=== PATIENT | female | born 1955 | race Caucasian/White ===

== ENCOUNTER 2017-01-20 06:34 | Day surgery (SDC) | payer BC ==
[~2017-01-20 06:34] MED LIST: Lactated Ringers 1,000 ML IV SCH; Sodium Chloride 0.9% 10 ML Syringe FLUSH PRN; Sodium Chloride 0.9% 2.5 ML Syringe FLUSH PRN; ceFAZolin 1 GM in Premix Bag 1 BAG IV ONE
--- NOTE | 2017-01-20 07:11 | PCM.PREANE ---
Preanesthetic Assessment - Anesthesia/Transfusion/Family Hx Anesthesia History: Prior Anesthesia Without Reaction Family History of Anesthesia Reaction: No Transfusion History: No Prior Transfusion(s) - Review of Systems General: No Symptoms Pulmonary: No Symptoms Cardiovascular: No Symptoms Gastrointestinal: No symptoms Neurological: No Symptoms Other: Reports: None - Physical Assessment NPO Status Date: 01/19/17 (except sip with med this am) O2 Sat by Pulse Oximetry: 98 Respiratory Rate: 16 Vital Signs: Last Vital Signs Temp 36.1 C 01/20/17 06:54 Pulse 64 01/20/17 06:54 Resp 16 01/20/17 06:54 BP 140/72 01/20/17 06:54 Pulse Ox 98 01/20/17 06:54 Height: 1.57 m Weight: 69.4 kg ASA Class: 3 Mental Status: Alert & Oriented x3 Airway Class: Mallampati = 2 Dentition: Reports: Broken Tooth/Teeth, Caries ROM/Head Extension: Full Lungs: Clear to auscultation, Normal respiratory effort Cardiovascular: Regular Rate, Regular Rhythm - Allergies Allergies/Adverse Reactions: Allergies Allergy/AdvReac Type Severity Reaction Status Date / Time adhesive tape Allergy Rash Verified 01/18/17 10:46 codeine Allergy Nausea and Verified 01/18/17 10:46 Vomiting latex Allergy Rash Verified 01/18/17 10:46 Sulfa (Sulfonamide Allergy Cannot Verified 01/18/17 10:46 Antibiotics) Remember - Acknowledgements Anesthesia Type Planned: General Anesthesia Pt an Appropriate Candidate for the Planned Anesthesia: Yes Alternatives and Risks of Anesthesia Discussed w Pt/Guardian: Yes Pt/Guardian Understands and Agrees with Anesthesia Plan: Yes Additional Comments: pmh: cad with stend 11 yr ago, on asa until 7 day ago, MR, lung ca with brain mets, HTN, thyroid replacement.Will use LMA for scavenging of O2 PreAnesthesia Questionnaire HEENT History: Reports: Allergic Rhinitis, Other (See Below) Other HEENT History: wears glasses Cardiovascular History: Reports: High Cholesterol, Hypertension, [place] Respiratory History: Reports: Other (See Below) Other Respiratory History: small cell lung cancer Musculoskeletal History: Reports: Arthritis Endocrine/Metabolic History: Reports: Hypothyroidism Oncologic (Cancer) History: Reports: Lung - Past Surgical History Head Surgeries/Procedures: Reports: None HEENT Surgical History: Reports: Tonsillectomy Cardiovascular Surgical History: Reports: Coronary Artery Stent Endocrine Surgical History: Reports: Thyroidectomy - SUBSTANCE USE Smoking Status *Q: Former Smoker Tobacco Use Within Last Twelve Months: Cigarettes Recreational Drug Use History: No - HOME MEDS Home Medications: Home Meds Aspirin [[place] Aspirin] 81 mg PO DAILY 01/18/17 [History] Furosemide 20 mg PO ASDIRECTED PRN 01/18/17 [History] Levothyroxine Sodium [Synthroid] 75 mcg PO DAILY 01/18/17 [History] Lisinopril 10 mg PO DAILY 01/18/17 [History] Ondansetron HCl [Ondansetron] 8 mg PO ASDIRECTED PRN 01/18/17 [History] Prochlorperazine Maleate 10 mg PO ASDIRECTED 01/18/17 [History] Simvastatin [Zocor] 20 mg PO DAILY 01/18/17 [History] - CURRENT (IN HOUSE) MEDS Current Meds: Current Medications Lactated Ringer's (Ringers, Lactated) 1,000 mls @ 125 mls/hr IV ASDIRECTED FABBY Last Admin: 01/20/17 06:58 Dose: 125 mls/hr Sodium Chloride (Saline Flush) 10 ml FLUSH ASDIRECTED PRN PRN Reason: Keep Vein Open Sodium Chloride (Saline Flush) 2.5 ml FLUSH ASDIRECTED PRN PRN Reason: Keep Vein Open Discontinued Medications Cefazolin Sodium/Dextrose 1 gm (/ Premix) 50 mls @ 100 mls/hr IV ONETIME ONE Stop: 01/19/17 12:38
[2017-01-20] MEDS ORDERED: Bupivacaine 0.5% 10 ML SDV ONE (07:20)
[2017-01-20] MEDS ORDERED: Heparin Sodium 100 Units/ML 3 ML Syringe ONE (07:21)
[2017-01-20] MEDS ORDERED: Lidocaine 1% 20 ML MDV ONE (07:21)
[2017-01-20] MEDS ORDERED: Iopamidol 408 MG/ML 50 ML SDV ONE (07:21)
[2017-01-20] MEDS ORDERED: Lidocaine 2% 5 ML SDV ONE (07:26)
[2017-01-20] MEDS ORDERED: Propofol 200 MG/20 ML SDV ONE (07:26)
[2017-01-20] MEDS ORDERED: fentaNYL 100 MCG/2 ML SDV ONE (07:26)
[2017-01-20] MEDS ORDERED: Ondansetron 4 MG/2 ML SDV ONE (07:27)
[2017-01-20] MEDS ORDERED: Midazolam 1 MG/ML 2 ML SDV ONE (07:27)
[2017-01-20] MEDS ORDERED: ceFAZolin 1 GM Vial ONE (07:32)
[2017-01-20] MEDS ORDERED: Sodium Chloride 0.9% 20 ML ONE (07:33)
[2017-01-20] MEDS ORDERED: ePHEDrine 50 MG/ML SDV ONE (08:10)
[2017-01-20] MEDS ORDERED: Phenylephrine/Normal Saline 100 MCG/ML 10 ML Syringe ONE (08:10)
[2017-01-20] MEDS ORDERED: Octyl 2-Cyanoacrylate 1 Tube ONE (08:46)
--- NOTE | 2017-01-20 09:16 | PCM.OPNOTE ---
- General Post-Op/Procedure Note Date of Surgery/Procedure: 01/20/17 Operative Procedure(s): Right internal jugular port a cath Findings: RIJ port Pre Op Diagnosis: lung cancer Post-Op Diagnosis: same Anesthesia Technique: General LMA Primary Surgeon: Shelia Cox Condition: Good
--- NOTE | 2017-01-20 09:56 | PCM48HPAN ---
Post Anesthesia Note - EVALUATION WITHIN 48HRS OF ANESTHETIC Vital Signs in Normal Range: Yes Patient Participated in Evaluation: Yes Respiratory Function Stable: Yes Airway Patent: Yes Cardiovascular Function Stable: Yes Hydration Status Stable: Yes Pain Control Satisfactory: Yes Nausea and Vomiting Control Satisfactory: Yes Mental Status Recovered: Yes
--- NOTE | 2017-01-20 09:56 | PCM.POSTAN ---
POST ANESTHESIA ASSESSMENT - MENTAL STATUS Mental Status: oriented - RESPIRATORY Respiratory Status: respiratory rate WNL, airway patent, O2 saturation stable - CARDIOVASCULAR CV Status: pulse rate WNL, blood pressure stable - GASTROINTESTINAL GI Status: no symptoms - POST OP HYDRATION Hydration Status: adequate & stable
[2017-01-20 10:30] VITALS: BP 122/63
--- NOTE | 2017-01-20 11:22 | CR ---
EXAMINATION: Portable chest radiograph. HISTORY: Port-A-Cath placement. FINDINGS: The trachea is midline. The cardiomediastinal silhouette is within normal limits. No pulmonary infil trates, effusions or pneumothorax. There is a right-sided portacatheter noted with tip in good posit ion. Osseous structures appear unremarkable. IMPRESSION: Right-sided portacatheter with tip in good position without evidence of a pneumothorax.
--- NOTE | 2017-01-20 13:25 | OR ---
SURGEON: HEIDY SWEENEY MD DATE OF PROCEDURE: 01/20/2017 PREOPERATIVE DIAGNOSIS: Left upper lobe lung cancer. POSTOPERATIVE DIAGNOSIS: Left upper lobe lung cancer. PROCEDURE PERFORMED: Right internal jugular Port-A-Cath placement. ANESTHESIA: General LMA. ESTIMATED BLOOD LOSS: 5 mL. FINDINGS: Right internal jugular Port-A-Cath placement. COMPLICATIONS: None. PATHOLOGY: None. FLUIDS: See anesthesia report. INDICATIONS: The patient is a 61-year-old female with a long history of smoking, who presents with a newly diagnosed left upper lobe lung cancer. She is here for Port-A-Cath placement for chemotherapy treatment. The patient and I discussed the procedure as well as expected perioperative course. We discussed the risks, including bleeding, infection, or damage to surrounding structures, including hemothorax and pneumothorax. The patient verbalized understanding and wishes to proceed. PROCEDURE IN DETAIL: The patient was brought to the OR and placed on the OR table in supine position. A time-out was completed verifying the patient's name, age, date of , allergies, and procedure to be performed. General LMA anesthesia was induced. A shoulder roll was placed under the patient's shoulders and both arms tucked at her side. The head was placed into slight extension and turned to the right. Prior to prepping the neck, I brought an ultrasound into the field and verified the vascular anatomy of the right side of the neck. I was able to clearly locate the right internal jugular vein and the right carotid on ultrasound. The decision was made to attempt a right internal jugular Port-A-Cath placement, given these findings. The patient's neck and chest were prepped and draped in the usual standard fashion. I first anesthetized the area overlying the right internal jugular vein with 1% lidocaine plain. I then anesthetized the right upper chest and catheter tract with the remainder of 1% lidocaine and 0.5% Marcaine plain. Using a locating needle and the ultrasound, I placed my needle into the right internal jugular vein under direct visualization. Immediately, had a good return of venous appearing blood. A guidewire was placed down the finding needle and into the chest. X-ray was brought in to verify the placement of the guidewire within the superior and inferior vena cava. I then turned my attention to the right upper chest. I made a 4 cm incision, 2 fingerbreadths below the lateral aspect of the clavicle. I then dissected down to the chest wall using electrocautery and created a subcutaneous pocket. A tunneling device was then placed through this incision and guided up to my guidewire site on the right side of the neck. The tubing was then pulled to an appropriate length. A vascular dilator and sheath were then placed over the guidewire and the right internal jugular vein was dilated under fluoroscopic guidance. Once this was completed, I removed the dilator and guidewire. I then placed the catheter tubing down the sheath into the superior vena cava. The sheath was then broken and pulled away. X-ray was brought in to verify placement of the catheter tubing into the superior vena cava. Using fluoro, I then pulled the catheter back into the superior vena cava at the length of approximately 25 cm. An x-ray was taken and saved to the patient's chart. I then ensured good blood flow through the catheter tubing using an injector needle on the end of the tubing with injectable saline. The catheter tubing was then trimmed to size and placed on the port. The port was then secured in the subcutaneous pocket to the chest wall using 2-0 Prolene sutures. These were tied down and the port accessed with a Denson needle. There was good return of blood and the port was then locked with 4 mL of heparinized saline. The Port-A-Cath pocket site on the right chest was closed with interrupted 3-0 Vicryl sutures in the subcutaneous fat and a running 4-0 Monocryl suture in the subcutaneous space. The neck incision site was closed with interrupted 4-0 Monocryl. Dermabond was applied over the wounds and the port accessed as the patient will be going to chemotherapy later today. All counts were complete and correct at the end of the case. The patient tolerated the procedure well and was taken to PACU. A chest x-ray was obtained, which showed good placement of the port with no evidence of any hemothorax or pneumothorax. The patient tolerated the procedure well. PAMELA COBB /[id number] AMAURY
== END 2017-01-20 10:25 | disposition home or self-care (01) ==
LOC: MW.SDS 06:34
PROVIDERS: ATTEND Surgery
DX: C34.12 Malignant neoplasm of upper lobe, left bronchus or lung (principal); I10 Essential (primary) hypertension; E03.9 Hypothyroidism, unspecified; I25.10 Atherosclerotic heart disease of native coronary artery without angina pectoris; Z91.09 Other allergy status, other than to drugs and biological substances; Z79.82 Long term (current) use of aspirin; Z79.899 Other long term (current) drug therapy; Z88.8 Allergy status to other drugs, medicaments and biological substances; Z91.030 Bee allergy status; Z91.040 Latex allergy status; Z98.890 Other specified postprocedural states; E89.0 Postprocedural hypothyroidism; Z87.891 Personal history of nicotine dependence
CPT/HCPCS: 36561; 71010; 76000; A9270; J0690; J1642; J2250; J2405; J3010; J7120; 00532; J2704; Q9966

== ENCOUNTER 2017-02-13 12:06 | Emergency (ER) | payer BC ==
--- NOTE | 2017-02-13 12:27 | EDM.PDOC ---
ED HPI GENERAL MEDICAL PROBLEM - General Chief Complaint: General Stated Complaint: BLOOD PRESSURE PROBLEMS Time Seen by Provider: 02/13/17 12:14 - History of Present Illness INITIAL COMMENTS - FREE TEXT/NARRATIVE: HISTORY AND PHYSICAL: History of present illness: Patient 61-year-old female with history of pulmonary CVA who is currently undergoing treatment and also has history of hypertension but had meds discontinued due to low blood pressure she was on several medications for blood pressure at that time. She presents today after having been monitoring her blood pressure and noted it trend that is been as high as 190 systolic most recently she did see her oncologist in nurse recently that suggested if this continues to be persistently elevated that she needs to be evaluated she has absolutely no symptoms and no complaints. On arrival in ED she is 191/95 and asymptomatic Review of systems: As per history of present illness and below otherwise all systems reviewed and negative. Past medical history: As per history of present illness and as reviewed below otherwise noncontributory. Surgical history: As per history of present illness and as reviewed below otherwise noncontributory. Social history: No reported history of drug or alcohol abuse. Family history: As per history of present illness and as reviewed below otherwise noncontributory. Physical exam: HEENT: Atraumatic, normocephalic, pupils reactive, mild conjunctival pallor, mucous membranes moist, throat clear, neck supple, nontender, trachea midline. Lungs: Clear to auscultation,, chest nontender. Heart: S1S2, regular, negative for clicks, rubs, or JVD. Abdomen: Soft, nondistended, nontender. Negative for masses or hepatosplenomegaly. Negative for costovertebral tenderness. Pelvis: Stable nontender. Genitourinary: Deferred. Rectal: Deferred. Extremities: Atraumatic, negative for cords or calf pain. Neurovascular unremarkable. Neuro: Awake, alert, oriented. Cranial nerves II through XII unremarkable. Cerebellum unremarkable. Motor and sensory unremarkable throughout. Exam nonfocal. Diagnostics: CBC CMP troponin EKG chest x-ray Therapeutics: None Impression: #1 history of pulmonary cancer #2 hypertension Definitive disposition and diagnosis as appropriate pending reevaluation and review of above. - Related Data Allergies Allergy/AdvReac Type Severity Reaction Status Date / Time adhesive tape Allergy Rash Verified 02/13/17 12:15 codeine Allergy Nausea and Verified 02/13/17 12:15 Vomiting latex Allergy Rash Verified 02/13/17 12:15 Sulfa (Sulfonamide Allergy Cannot Verified 02/13/17 12:15 Antibiotics) Remember Home Meds: Home Meds Aspirin [[place] Aspirin] 81 mg PO DAILY 01/18/17 [History] Levothyroxine Sodium [Synthroid] 75 mcg PO DAILY 01/18/17 [History] Ondansetron HCl [Ondansetron] 8 mg PO ASDIRECTED PRN 01/18/17 [History] Prochlorperazine Maleate 10 mg PO ASDIRECTED 01/18/17 [History] Simvastatin [Zocor] 20 mg PO BEDTIME 01/18/17 [History] Omeprazole Magnesium [Prilosec Otc] 1 tab PO DAILY 02/13/17 [History] Past Medical History HEENT History: Reports: Allergic Rhinitis, Other (See Below) Other HEENT History: wears glasses Cardiovascular History: Reports: High Cholesterol, Hypertension, [place] Respiratory History: Reports: Other (See Below) Other Respiratory History: small cell lung cancer Musculoskeletal History: Reports: Arthritis Endocrine/Metabolic History: Reports: Hypothyroidism Oncologic (Cancer) History: Reports: Lung - Past Surgical History Head Surgeries/Procedures: Reports: None HEENT Surgical History: Reports: Tonsillectomy Cardiovascular Surgical History: Reports: Coronary Artery Stent Endocrine Surgical History: Reports: Thyroidectomy Social & Family History - Tobacco Use Smoking Status *Q: Former Smoker Years of Tobacco use: 40 Used Tobacco, but Quit: Yes Month Tobacco Last Used: pt states she quit smoking "last week" - Recreational Drug Use Recreational Drug Use: No Drug Use in Last 12 Months: No ED ROS GENERAL - Review of Systems Review Of Systems: ROS reveals no pertinent complaints other than HPI. ED EXAM, GENERAL - Physical Exam Exam: See Below (See dictation) Course - Vital Signs Last Recorded V/S: Last Vital Signs Temp 36.6 C 02/13/17 12:16 Pulse 64 02/13/17 12:16 Resp 18 02/13/17 12:16 BP 189/95 H 02/13/17 12:16 Pulse Ox 97 02/13/17 12:16 - Orders/Labs/Meds Orders: Active Orders 24 hr Category Date Time Status EKG 12 Lead [EKG Documentation Completion] [RC] STAT Care 02/13/17 12:33 Active Chest 1V Frontal [CR] Stat Exams 02/13/17 12:20 Taken Labs: Laboratory Tests 02/13/17 02/13/17 02/13/17 Range/Units 12:28 12:28 12:28 WBC 8.96 (4.0-11.0) K/uL RBC 3.85 L (4.30-5.90) M/uL Hgb 10.5 L (12.0-16.0) g/dL Hct 31.5 L (36.0-46.0) % MCV 81.8 (80.0-98.0) fL MCH 27.3 (27.0-32.0) pg MCHC 33.3 (31.0-37.0) g/dL RDW Std Deviation 46.9 (28.0-62.0) fl RDW Coeff of Alonso 17 H (11.0-15.0) % Plt Count 340 (150-400) K/uL MPV 8.70 (7.40-12.00) fL Neut % (Auto) 86.5 H (48.0-80.0) % Lymph % (Auto) 10.8 L (16.0-40.0) % [place] % (Auto) 2.5 (0.0-15.0) % Eos % (Auto) 0.1 (0.0-7.0) % Baso % (Auto) 0.1 (0.0-1.5) % Neut # (Auto) 7.8 H (1.4-5.7) K/uL Lymph # (Auto) 1.0 (0.6-2.4) K/uL [place] # (Auto) 0.2 (0.0-0.8) K/uL Eos # (Auto) 0.0 (0.0-0.7) K/uL Baso # (Auto) 0.0 (0.0-0.1) K/uL Nucleated RBC % 0.0 /100WBC Nucleated RBCs # 0 K/uL Sodium 138 (136-146) mmol/L Potassium 3.4 L (3.5-5.1) mmol/L Chloride 103 (98-110) mmol/L Carbon Dioxide 25 (21-31) mmol/L BUN 23 (6.0-23.0) mg/dL Creatinine 1.0 (0.6-1.5) mg/dL Est Cr Clr Drug Dosing 46.72 mL/min Estimated GFR (MDRD) 56.4 ml/min Glucose 100 (60-110) mg/dL Calcium 8.7 L (8.8-10.8) mg/dL Total Bilirubin 0.3 (0.1-1.5) mg/dL AST 23 (5-40) IU/L ALT 12 (8-54) IU/L Alkaline Phosphatase 80 (40-150) Troponin I < 0.10 (0.0-0.29) NG/ML Total Protein 7.0 (6.0-8.0) g/dL Albumin 3.5 (3.4-4.8) g/dL Globulin 3.5 (2.0-3.5) g/dL Albumin/Globulin Ratio 1.0 L (1.3-2.8) Departure - Departure Time of Disposition: 13:15 Disposition: Home, Self-Care 01 Condition: Good Clinical Impression: Pulmonary cancer, Hypertension, Encounter for medical screening examination - Discharge Information Forms: ED Department Discharge Additional Instructions: The following information is given to patients seen in the emergency department who are being discharged to home. This information is to outline your options for follow-up care. We provide all patients seen in our emergency department with a follow-up referral. The need for follow-up, as well as the timing and circumstances, are variable depending upon the specifics of your emergency department visit. If you don't have a primary care physician on staff, we will provide you with a referral. We always advise you to contact your personal physician following an emergency department visit to inform them of the circumstance of the visit and for follow-up with them and/or the need for any referrals to a consulting specialist. The emergency department will also refer you to a specialist when appropriate. This referral assures that you have the opportunity for followup care with a specialist. All of these measure are taken in an effort to provide you with optimal care, which includes your followup. Under all circumstances we always encourage you to contact your private physician who remains a resource for coordinating your care. When calling for followup care, please make the office aware that this follow-up is from your recent emergency room visit. If for any reason you are refused follow-up, please contact the [facility] emergency department at and asked to speak to the emergency department charge nurse. Lisinopril as prescribed continue current medications follow-up private medical doctor/oncologist this week as discussed return as needed as discussed - My Orders Last 24 Hours: My Active Orders 02/13/17 12:20 Chest 1V Frontal [CR] Stat 02/13/17 12:33 EKG 12 Lead [EKG Documentation Completion] [RC] STAT - Assessment/Plan Last 24 Hours: My Active Orders 02/13/17 12:20 Chest 1V Frontal [CR] Stat 02/13/17 12:33 EKG 12 Lead [EKG Documentation Completion] [RC] STAT
[2017-02-13 13:38] VITALS: BP 160/73
--- NOTE | 2017-02-15 11:22 | CR ---
EXAM DATE: 02/13/17 PATIENT'S AGE: 61 Patient: MARIBEL BORREGO Facility: [place], [place] Site . Site : [id number] Study: XRay Chest [id number]/15/2017 12:47:01 PM Ordering Physician: Abdirahman Baez Final Report: CHEST 1 VIEW AP INDICATION: Fatigue. Chemotherapy. COMPARISON: 01/20/2017. IMPRESSION: Stable heart size and vascular pattern. Right Port-A-Cath. Central venous line, superior vena cava. Lungs are clear of new focal opacities. No pneumothorax or pleural abnormality. No significant change. Dictated by Jose Guadalupe Morales MD @ Feb 13 2017 1:03PM (Electronic Signature) Report Signed by Proxy. AMAURY
== END 2017-02-13 13:43 | disposition home or self-care (01) ==
LOC: MW.ED 12:06
DX: I10 Essential (primary) hypertension (principal); C34.90 Malignant neoplasm of unspecified part of unspecified bronchus or lung; I25.2 Old myocardial infarction; E78.00 Pure hypercholesterolemia, unspecified; E89.0 Postprocedural hypothyroidism; Z95.5 Presence of coronary angioplasty implant and graft; Z98.890 Other specified postprocedural states; Z87.891 Personal history of nicotine dependence; Z79.82 Long term (current) use of aspirin; Z79.899 Other long term (current) drug therapy; Z88.2 Allergy status to sulfonamides; Z88.5 Allergy status to narcotic agent; Z91.040 Latex allergy status; Z91.048 Other nonmedicinal substance allergy status
CPT/HCPCS: 36415; 71010; 71010-26; 80053; 84484; 85025; 93005; 99283; 99284-25

== ENCOUNTER 2017-03-06 14:43 | Emergency (ER) | payer BC ==
--- NOTE | 2017-03-06 15:07 | EDM.PDOC ---
ED HPI GENERAL MEDICAL PROBLEM - General Chief Complaint: General Stated Complaint: HIGH BP Time Seen by Provider: 03/06/17 14:59 Source of Information: Reports: Patient History Limitations: Reports: No Limitations - History of Present Illness INITIAL COMMENTS - FREE TEXT/NARRATIVE: History of present illness: [61-year-old female with small cell lung CA comes in complaining of hypertension with a mild headache. Indicates that she has had her blood pressure managed by her oncologist and he indicated if it became high again that she should come to the ER] Review of systems: As per history of present illness and below otherwise all systems reviewed and negative. Past medical history: As per history of present illness and as reviewed below otherwise noncontributory. Surgical history: As per history of present illness and as reviewed below otherwise noncontributory. Social history: No reported history of drug or alcohol abuse. Family history: As per history of present illness and as reviewed below otherwise noncontributory. Physical exam: HEENT: Atraumatic, normocephalic, pupils reactive, negative for conjunctival pallor or scleral icterus, mucous membranes moist, throat clear, neck supple, nontender, trachea midline. Lungs: Clear to auscultation, breath sounds equal bilaterally, chest nontender. Heart: S1S2, regular, negative for clicks, rubs, or JVD. Abdomen: Soft, nondistended, nontender. Negative for masses or hepatosplenomegaly. Negative for costovertebral tenderness. Pelvis: Stable nontender. Genitourinary: Deferred. Rectal: Deferred. Extremities: Atraumatic, negative for cords or calf pain. Neurovascular unremarkable. Neuro: Awake, alert, oriented. Cranial nerves II through XII unremarkable. Cerebellum unremarkable. Motor and sensory unremarkable throughout. Exam nonfocal. Patient's blood pressure stable while in ED and continues to be asymptomatic. Called [facility] and spoke with Dr. Mackey in regards to plan of care for patient he indicated that it would be his wish that we give patient another lisinopril 10 mg and have her follow-up with a primary care provider next week. Patient has seen Dr. Aguayo past verbalized a relationship with him will refer back to and the clinic for further management. Diagnostics: [CBC, CMP, EKG] Therapeutics: [] Impression: [Hypertension, headache] Plan: [Lisinopril today, follow-up with PCP] Definitive disposition and diagnosis as appropriate pending reevaluation and review of above. head Pain Score (Numeric/FACES): 2 - Related Data Allergies Allergy/AdvReac Type Severity Reaction Status Date / Time adhesive tape Allergy Rash Verified 03/06/17 14:54 codeine Allergy Nausea and Verified 03/06/17 14:54 Vomiting latex Allergy Rash Verified 03/06/17 14:54 Sulfa (Sulfonamide Allergy Cannot Verified 03/06/17 14:54 Antibiotics) Remember Home Meds: Home Meds Aspirin [[place] Aspirin] 81 mg PO DAILY 01/18/17 [History] Levothyroxine Sodium [Synthroid] 75 mcg PO DAILY 01/18/17 [History] Ondansetron HCl [Ondansetron] 8 mg PO ASDIRECTED PRN 01/18/17 [History] Prochlorperazine Maleate 10 mg PO ASDIRECTED 01/18/17 [History] Simvastatin [Zocor] 20 mg PO BEDTIME 01/18/17 [History] Omeprazole Magnesium [Prilosec Otc] 1 tab PO DAILY 02/13/17 [History] Lisinopril 10 mg PO DAILY 03/06/17 [History] Past Medical History - Past Health History Medical/Surgical History: Denies Medical/Surgical History HEENT History: Reports: Allergic Rhinitis, Other (See Below) Other HEENT History: wears glasses Cardiovascular History: Reports: High Cholesterol, Hypertension, [place] Respiratory History: Reports: Other (See Below) Other Respiratory History: small cell lung cancer Musculoskeletal History: Reports: Arthritis Endocrine/Metabolic History: Reports: Hypothyroidism Oncologic (Cancer) History: Reports: Lung - Past Surgical History Head Surgeries/Procedures: Reports: None HEENT Surgical History: Reports: Tonsillectomy Cardiovascular Surgical History: Reports: Coronary Artery Stent Endocrine Surgical History: Reports: Thyroidectomy Social & Family History - Family History Family Medical History: Noncontributory - Tobacco Use Smoking Status *Q: Former Smoker Years of Tobacco use: 40 Packs/Tins Daily: 1 Used Tobacco, but Quit: Yes Month Tobacco Last Used: pt states she quit smoking "last week" - Caffeine Use Caffeine Use: Reports: Coffee - Recreational Drug Use Recreational Drug Use: No Drug Use in Last 12 Months: No ED ROS GENERAL - Review of Systems Review Of Systems: See Below (The history of present illness) ED EXAM, GENERAL - Physical Exam Exam: See Below (History of present illness) Course - Vital Signs Last Recorded V/S: Last Vital Signs Temp 36.8 C 03/06/17 14:58 Pulse 66 03/06/17 14:58 Resp 18 03/06/17 14:58 BP 188/91 H 03/06/17 16:19 Pulse Ox 100 03/06/17 14:58 - Orders/Labs/Meds Orders: Active Orders 24 hr Category Date Time Status EKG Documentation Completion [RC] STAT Care 03/06/17 15:08 Active Labs: Laboratory Tests 03/06/17 03/06/17 Range/Units 15:15 15:15 WBC 7.24 (4.0-11.0) K/uL RBC 3.29 L (4.30-5.90) M/uL Hgb 9.1 L (12.0-16.0) g/dL Hct 27.7 L (36.0-46.0) % MCV 84.2 (80.0-98.0) fL MCH 27.7 (27.0-32.0) pg MCHC 32.9 (31.0-37.0) g/dL RDW Std Deviation 63.7 H (28.0-62.0) fl RDW Coeff of Alonso 21 H (11.0-15.0) % Plt Count 296 (150-400) K/uL MPV 8.70 (7.40-12.00) fL Neut % (Auto) 87.1 H (48.0-80.0) % Lymph % (Auto) 10.6 L (16.0-40.0) % [place] % (Auto) 2.2 (0.0-15.0) % Eos % (Auto) 0.1 (0.0-7.0) % Baso % (Auto) 0.0 (0.0-1.5) % Neut # (Auto) 6.3 H (1.4-5.7) K/uL Lymph # (Auto) 0.8 (0.6-2.4) K/uL [place] # (Auto) 0.2 (0.0-0.8) K/uL Eos # (Auto) 0.0 (0.0-0.7) K/uL Baso # (Auto) 0.0 (0.0-0.1) K/uL Nucleated RBC % 0.0 /100WBC Nucleated RBCs # 0 K/uL Sodium 138 (136-146) mmol/L Potassium 3.4 L (3.5-5.1) mmol/L Chloride 101 (98-110) mmol/L Carbon Dioxide 27 (21-31) mmol/L BUN 23 (6.0-23.0) mg/dL Creatinine 1.0 (0.6-1.5) mg/dL Est Cr Clr Drug Dosing 46.72 mL/min Estimated GFR (MDRD) 56.4 ml/min Glucose 119 H (60-110) mg/dL Calcium 8.4 L (8.8-10.8) mg/dL Total Bilirubin 0.2 (0.1-1.5) mg/dL AST 21 (5-40) IU/L ALT 11 (8-54) IU/L Alkaline Phosphatase 72 (40-150) Total Protein 6.5 (6.0-8.0) g/dL Albumin 3.4 (3.4-4.8) g/dL Globulin 3.1 (2.0-3.5) g/dL Albumin/Globulin Ratio 1.1 L (1.3-2.8) Meds: Medications Discontinued Medications Generic Name Dose Route Start Last Admin Trade Name Freq PRN Reason Stop Dose Admin Lisinopril 10 mg 03/06/17 16:08 03/06/17 16:19 Prinivil PO 03/06/17 16:09 10 mg ONETIME ONE Administration Departure - Departure Time of Disposition: 16:22 Disposition: Home, Self-Care 01 Condition: Good Clinical Impression: Hypertension - Discharge Information Forms: ED Department Discharge Additional Instructions: The following information is given to patients seen in the emergency department who are being discharged to home. This information is to outline your options for follow-up care. We provide all patients seen in our emergency department with a follow-up referral. The need for follow-up, as well as the timing and circumstances, are variable depending upon the specifics of your emergency department visit. If you don't have a primary care physician on staff, we will provide you with a referral. We always advise you to contact your personal physician following an emergency department visit to inform them of the circumstance of the visit and for follow-up with them and/or the need for any referrals to a consulting specialist. The emergency department will also refer you to a specialist when appropriate. This referral assures that you have the opportunity for follow-up care with a specialist. All of these measure are taken in an effort to provide you with optimal care, which includes your follow-up. Under all circumstances we always encourage you to contact your private physician who remains a resource for coordinating your care. When calling for follow-up care, please make the office aware that this follow-up is from your recent emergency room visit. If for any reason you are refused follow-up, please contact the [facility] Emergency Department at and asked to speak to the emergency department charge nurse. Call the clinic 8:00 Wednesday morning for a follow-up appointment with Dr. aguayo your PCP Return to ED as needed as discussed - My Orders Last 24 Hours: My Active Orders 03/06/17 15:08 EKG Documentation Completion [RC] STAT - Assessment/Plan Last 24 Hours: My Active Orders 03/06/17 15:08 EKG Documentation Completion [RC] STAT
[2017-03-06] MEDS ORDERED: Lisinopril 10 MG Tab PO ONE (16:08)
[2017-03-06 16:44] VITALS: BP 153/75
== END 2017-03-06 16:43 | disposition home or self-care (01) ==
LOC: MW.ED 14:43
DX: I10 Essential (primary) hypertension (principal); I25.2 Old myocardial infarction; E03.9 Hypothyroidism, unspecified; E78.00 Pure hypercholesterolemia, unspecified; Z88.5 Allergy status to narcotic agent; Z91.040 Latex allergy status; Z88.2 Allergy status to sulfonamides; Z79.82 Long term (current) use of aspirin; Z79.899 Other long term (current) drug therapy; Z98.890 Other specified postprocedural states; Z87.891 Personal history of nicotine dependence; C34.90 Malignant neoplasm of unspecified part of unspecified bronchus or lung
CPT/HCPCS: 36415; 80053; 85025; 93005; 99284; A9270; 99283

== ENCOUNTER 2018-03-15 08:42 | Observation (INO) | payer MEDICAID ==
[2018-03-15] MEDS ORDERED: Piperacillin/Tazobactam 3.375 GM in Sodium Chloride 0.9% 50 ML IV ONE (09:03)
[2018-03-15] MEDS ORDERED: HYDROmorphone 2 MG/ML Syringe IVPUSH PRN (09:03)
--- NOTE | 2018-03-15 09:28 | EDM.PDOC ---
<Zurdo Watson - Last Filed: 03/15/18 09:43> ED HPI GENERAL MEDICAL PROBLEM - General Chief Complaint: Respiratory Problem Stated Complaint: SOB Time Seen by Provider: 03/15/18 10:03 - History of Present Illness INITIAL COMMENTS - FREE TEXT/NARRATIVE: Adelita David is a 62 y/o female with history of lung cancer diagnosed in 2017 and currently receiving chemotherapy. Presenting today to the ER for shortness of breath. Per patient and fmaily, patient has been feeling more weak over the past 2 weeks and has progressively been short of breath with some wheezing. No history of asthma. Has been having a productive cough, clear color. No fevers noted. Denies any chest pain, radiation to the neck or left arm. No abdominal pain, dysuria or diarrhea. - Related Data Allergies Allergy/AdvReac Type Severity Reaction Status Date / Time adhesive tape Allergy Rash Verified 03/15/18 08:46 codeine Allergy Nausea and Verified 03/15/18 08:46 Vomiting latex Allergy Rash Verified 03/15/18 08:46 Sulfa (Sulfonamide Allergy Cannot Verified 03/15/18 08:46 Antibiotics) Remember Home Meds: Home Meds Aspirin [[place] Aspirin] 81 mg PO DAILY 01/18/17 [History] Levothyroxine Sodium [Synthroid] 75 mcg PO DAILY 01/18/17 [History] Simvastatin [Zocor] 20 mg PO BEDTIME 01/18/17 [History] Omeprazole Magnesium [Prilosec Otc] 1 tab PO DAILY 02/13/17 [History] ED ROS GENERAL - Review of Systems Review Of Systems: See Below Constitutional: Reports: Weakness, Fatigue Respiratory: Reports: Shortness of Breath, Wheezing, Cough, Sputum. Denies: Hemoptysis Cardiovascular: Reports: No Symptoms Endocrine: Reports: No Symptoms GI/Abdominal: Reports: No Symptoms : Reports: No Symptoms Musculoskeletal: Reports: No Symptoms Skin: Reports: No Symptoms Neurological: Reports: No Symptoms Psychiatric: Reports: No Symptoms Hematologic/Lymphatic: Reports: No Symptoms ED EXAM, GENERAL - Physical Exam Exam: See Below Exam Limited By: No Limitations General Appearance: Alert, No Apparent Distress, Thin Respiratory/Chest: No Accessory Muscle Use, Crackles, Other (left lower lobe cracklers. Good aeration. No wheezing.). No: Wheezing Cardiovascular: Normal Peripheral Pulses, Regular Rate, Rhythm, No Edema, No Gallop, No JVD, No Murmur, No Rub GI/Abdominal: Normal Bowel Sounds, Soft, Non-Tender, No Organomegaly, No Distention, No Abnormal Bruit, No Mass Back Exam: Normal Inspection, Full Range of Motion, NT Extremities: Normal Inspection, Normal Range of Motion, Non-Tender, Normal Capillary Refill, No Pedal Edema Skin Exam: Warm, Dry, Intact, Normal Color, No Rash Course - Vital Signs Last Recorded V/S: Last Vital Signs Temp 96.9 F 03/15/18 08:46 Pulse 99 03/15/18 08:46 Resp 16 03/15/18 08:46 BP 124/77 03/15/18 08:46 Pulse Ox - Orders/Labs/Meds Orders: Active Orders 24 hr Category Date Time Status EKG 12 Lead [EKG Documentation Completion] [RC] STAT Care 03/15/18 08:44 Active RT Aerosol Therapy [RC] ASDIRECTED Care 03/15/18 09:53 Active Chest 2V [CR] Stat Exams 03/15/18 08:45 Taken URINALYSIS W/MICROSCOPIC [UA W/MICROSCOPIC] [URIN] Stat Lab 03/15/18 08:45 Ordered Labs: Laboratory Tests 03/15/18 03/15/18 Range/Units 09:15 09:15 WBC 8.78 (4.0-11.0) K/uL RBC 2.81 L (4.30-5.90) M/uL Hgb 8.2 L (12.0-16.0) g/dL Hct 25.2 L (36.0-46.0) % MCV 89.7 (80.0-98.0) fL MCH 29.2 (27.0-32.0) pg MCHC 32.5 (31.0-37.0) g/dL RDW Std Deviation 71.1 H (28.0-62.0) fl RDW Coeff of Alonso 24 H (11.0-15.0) % Plt Count 170 (150-400) K/uL MPV 9.10 (7.40-12.00) fL Add Manual Diff YES Neutrophils % (Manual) 77 (48.0-80.0) % Band Neutrophils % 10 % Lymphocytes % (Manual) 11 L (16.0-40.0) % Monocytes % (Manual) 2 (0.0-15.0) % Nucleated RBC % 0.6 /100WBC Absolute Seg Neuts 6.8 H (1.4-5.7) Band Neutrophils # 0.9 Lymphocytes # (Manual) 1.0 (0.6-2.4) Monocytes # (Manual) 0.2 (0.0-0.8) Nucleated RBCs 2 % Nucleated RBCs # 0 K/uL Polychromasia 1+ SLIGHT Anisocytosis 1+ SLIGHT Sodium 134 L (136-145) mmol/L Potassium 3.4 L (3.5-5.1) mmol/L Chloride 93 L (98-107) mmol/L Carbon Dioxide 18.9 L (21.0-32.0) mmol/L BUN 49 H (7.0-18.0) mg/dL Creatinine 2.3 H (0.6-1.0) mg/dL Est Cr Clr Drug Dosing 20.06 mL/min Estimated GFR (MDRD) 21.5 ml/min Glucose 124 H (74-106) mg/dL Calcium 9.8 (8.5-10.1) mg/dL Total Bilirubin 0.5 (0.2-1.0) mg/dL AST 40 H (15-37) IU/L ALT 12 L (14-63) IU/L Alkaline Phosphatase 67 (46-116) U/L Troponin I < 0.050 (0.000-0.056) ng/mL Total Protein 7.9 (6.4-8.2) g/dL Albumin 2.5 L (3.4-5.0) g/dL Globulin 5.4 H (2.0-3.5) g/dL Albumin/Globulin Ratio 0.5 L (1.3-2.8) Meds: Medications Discontinued Medications Generic Name Dose Route Start Last Admin Trade Name Freq PRN Reason Stop Dose Admin Albuterol/Ipratropium 3 ml 03/15/18 09:53 Duoneb 3.0-0.5 Mg/3 Ml NEB 03/15/18 09:54 ONETIME ONE Methylprednisolone Sodium Succinate 125 mg 03/15/18 09:53 Solu-Medrol IVPUSH 03/15/18 09:54 ONETIME ONE Departure - Departure Disposition: Admitted As Inpatient 66 Clinical Impression: Hypoxia - Discharge Information Forms: ED Department Discharge - My Orders Last 24 Hours: My Active Orders 03/15/18 08:44 EKG 12 Lead [EKG Documentation Completion] [RC] STAT 03/15/18 09:53 RT Aerosol Therapy [RC] ASDIRECTED - Assessment/Plan Last 24 Hours: My Active Orders 03/15/18 08:44 EKG 12 Lead [EKG Documentation Completion] [RC] STAT 03/15/18 09:53 RT Aerosol Therapy [RC] ASDIRECTED <CodyGuilherme Abraham - Last Filed: 03/15/18 10:05> ED HPI GENERAL MEDICAL PROBLEM - General Source of Information: Reports: Patient - History of Present Illness INITIAL COMMENTS - FREE TEXT/NARRATIVE: HISTORY AND PHYSICAL: History of present illness: []Patient was small cell lung cancer presents with generalized weakness and shortness of breath again at 4 AM increasing in severity she did require some assistance out her car via a friend No fever vomiting chills sweats no chest pain headache dizziness or palpitation Review of systems: As per history of present illness and below otherwise all systems reviewed and negative. Past medical history: As per history of present illness and as reviewed below otherwise noncontributory. Surgical history: As per history of present illness and as reviewed below otherwise noncontributory. Social history: No reported history of drug or alcohol abuse. Family history: As per history of present illness and as reviewed below otherwise noncontributory. Physical exam: HEENT: Atraumatic, normocephalic, pupils reactive, negative for conjunctival pallor or scleral icterus, mucous membranes moist, throat clear, neck supple, nontender, trachea midline. Lungs: Clear to auscultation, breath sounds equal bilaterally, chest nontender. Heart: S1S2, regular, negative for clicks, rubs, or JVD. Abdomen: Soft, nondistended, nontender. Negative for masses or hepatosplenomegaly. Negative for costovertebral tenderness. Pelvis: Stable nontender. Genitourinary: Deferred. Rectal: Deferred. Extremities: Atraumatic, negative for cords or calf pain. Neurovascular unremarkable. Neuro: Awake, alert, oriented. Cranial nerves II through XII unremarkable. Cerebellum unremarkable. Motor and sensory unremarkable throughout. Exam nonfocal. Diagnostics: [CBC CMP troponin EKG Chest 2 views ] Therapeutics: [ DuoNeb Solu-Medrol Normal saline 1 25 mL ] Impression: [ hypoxia Shortness of breath chronic hx baseline Definitive disposition and diagnosis as appropriate pending reevaluation and review of above. neck and back Pain Score (Numeric/FACES): 5 Past Medical History - Past Health History Medical/Surgical History: Denies Medical/Surgical History HEENT History: Reports: Allergic Rhinitis, Other (See Below) Other HEENT History: wears glasses Cardiovascular History: Reports: High Cholesterol, Hypertension, [place] Respiratory History: Reports: Other (See Below) Other Respiratory History: small cell lung cancer Gastrointestinal History: Reports: Other (See Below) Other Gastrointestinal History: reports an infection of some type in January 2018 Genitourinary History: Reports: None SHOVEL OPERATOR History: Reports: None Musculoskeletal History: Reports: Arthritis Neurological History: Reports: None, Other (See Below) Other Neuro History: brain cancer Psychiatric History: Reports: None Endocrine/Metabolic History: Reports: Hypothyroidism Hematologic History: Reports: Blood Transfusion(s) Oncologic (Cancer) History: Reports: Brain, Lung Dermatologic History: Reports: None - Infectious Disease History Infectious Disease History: Reports: Chicken Pox, Measles, Mumps - Past Surgical History Head Surgeries/Procedures: Reports: None HEENT Surgical History: Reports: Tonsillectomy Cardiovascular Surgical History: Reports: Coronary Artery Stent GI Surgical History: Reports: None Female Surgical History: Reports: None Endocrine Surgical History: Reports: Thyroidectomy Social & Family History - Family History Family Medical History: Noncontributory - Tobacco Use Smoking Status *Q: Former Smoker Used Tobacco, but Quit: Yes Month/Year Tobacco Last Used: 12/2016 - Caffeine Use Caffeine Use: Reports: None - Recreational Drug Use Recreational Drug Use: No ED ROS GENERAL - Review of Systems Review Of Systems: See Below ED EXAM, GENERAL - Physical Exam Exam: See Below Course - Orders/Labs/Meds Labs: Laboratory Tests 03/15/18 03/15/18 Range/Units 09:15 09:15 WBC 8.78 (4.0-11.0) K/uL RBC 2.81 L (4.30-5.90) M/uL Hgb 8.2 L (12.0-16.0) g/dL Hct 25.2 L (36.0-46.0) % MCV 89.7 (80.0-98.0) fL MCH 29.2 (27.0-32.0) pg MCHC 32.5 (31.0-37.0) g/dL RDW Std Deviation 71.1 H (28.0-62.0) fl RDW Coeff of Alonso 24 H (11.0-15.0) % Plt Count 170 (150-400) K/uL MPV 9.10 (7.40-12.00) fL Add Manual Diff YES Neutrophils % (Manual) 77 (48.0-80.0) % Band Neutrophils % 10 % Lymphocytes % (Manual) 11 L (16.0-40.0) % Monocytes % (Manual) 2 (0.0-15.0) % Nucleated RBC % 0.6 /100WBC Absolute Seg Neuts 6.8 H (1.4-5.7) Band Neutrophils # 0.9 Lymphocytes # (Manual) 1.0 (0.6-2.4) Monocytes # (Manual) 0.2 (0.0-0.8) Nucleated RBCs 2 % Nucleated RBCs # 0 K/uL Polychromasia 1+ SLIGHT Anisocytosis 1+ SLIGHT Sodium 134 L (136-145) mmol/L Potassium 3.4 L (3.5-5.1) mmol/L Chloride 93 L (98-107) mmol/L Carbon Dioxide 18.9 L (21.0-32.0) mmol/L BUN 49 H (7.0-18.0) mg/dL Creatinine 2.3 H (0.6-1.0) mg/dL Est Cr Clr Drug Dosing 20.06 mL/min Estimated GFR (MDRD) 21.5 ml/min Glucose 124 H (74-106) mg/dL Calcium 9.8 (8.5-10.1) mg/dL Total Bilirubin 0.5 (0.2-1.0) mg/dL AST 40 H (15-37) IU/L ALT 12 L (14-63) IU/L Alkaline Phosphatase 67 (46-116) U/L Troponin I < 0.050 (0.000-0.056) ng/mL Total Protein 7.9 (6.4-8.2) g/dL Albumin 2.5 L (3.4-5.0) g/dL Globulin 5.4 H (2.0-3.5) g/dL Albumin/Globulin Ratio 0.5 L (1.3-2.8) Meds: Medications Discontinued Medications Generic Name Dose Route Start Last Admin Trade Name Harpreetq PRN Reason Stop Dose Admin Albuterol/Ipratropium 3 ml 03/15/18 09:53 Duoneb 3.0-0.5 Mg/3 Ml NEB 03/15/18 09:54 ONETIME ONE Methylprednisolone Sodium Succinate 125 mg 03/15/18 09:53 Solu-Medrol IVPUSH 03/15/18 09:54 ONETIME ONE Departure - Departure Time of Disposition: 10:04 Condition: Poor
[2018-03-15 09:51] LABS: CHLORIDE,CL 93 mmol/L (98-107); SODIUM,NA 134 mmol/L (136-145)
[2018-03-15] MEDS ORDERED: methylPREDNISolone Sodium Succinate 125 MG/2 ML SDV IVPUSH ONE (09:53)
[2018-03-15] MEDS ORDERED: Albuterol/Ipratropium 3.0-0.5 MG/3 ML Neb Soln NEB ONE (09:53)
--- NOTE | 2018-03-15 10:04 | CR ---
EXAMINATION: Two-view chest (PA and Lateral views). HISTORY: Shortness of breath. FINDINGS: The trachea is midline. The heart is normal in size. Osseous structures appear unremarkable. There is an enlarging left suprahilar mass noted. There is co nsolidation within the left lung base with a small pleural effusion. There is narrowing of the left m ainstem bronchus. There is a right-sided portacatheter noted. Visualized osseous structures appear intact however osteopenic. IMPRESSION: 1. Enlarging left perihilar and suprahilar mass with narrowing of the left mainstem bronchus. 2. Left basilar consolidation and small pleural effusion. Underlying pneumonia is not excluded.
[2018-03-15] MEDS ORDERED: cefTRIAXone 1 GM in Premix Bag 1 BAG IV ONE (10:14)
[2018-03-15] MEDS: Sodium Chloride 0.9% 1,000 ML IV SCH ×2 (10:36→20:04)
[2018-03-15] MEDS ORDERED: Acetaminophen 325 MG Tab PO PRN (13:27)
[2018-03-15] MEDS ORDERED: Ondansetron 4 MG Tab.DIS PO PRN (13:27)
[2018-03-15] MEDS ORDERED: Albuterol/Ipratropium 3.0-0.5 MG/3 ML Neb Soln NEB PRN (13:27)
[2018-03-15] MEDS ORDERED: Levofloxacin/Dextrose 5%-Water 750 MG in Premix Bag 1 BAG IV SCH (13:30)
--- NOTE | 2018-03-15 13:35 | PCM.HP ---
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 She denies any fevers or chest pain. She was noted to be sating in the 80s on room air on admission. CXR reported enlarging left perihilar and suprahilar mas and left basilar consolidation and effusion. She received solumedrol and Rocephin in the ED. neck and back Pain Score (Numeric/FACES): 5 - Related Data Allergies/Adverse Reactions: Allergies Allergy/AdvReac Type Severity Reaction Status Date / Time adhesive tape Allergy Rash Verified 03/15/18 08:46 codeine Allergy Nausea and Verified 03/15/18 08:46 Vomiting latex Allergy Rash Verified 03/15/18 08:46 Sulfa (Sulfonamide Allergy Cannot Verified 03/15/18 08:46 Antibiotics) Remember Home Medications: Home Meds Aspirin [Pleasants Aspirin] 81 mg PO DAILY 01/18/17 [History] Levothyroxine Sodium [Synthroid] 75 mcg PO DAILY 01/18/17 [History] Simvastatin [Zocor] 20 mg PO BEDTIME 01/18/17 [History] Omeprazole Magnesium [Prilosec Otc] 40 tab PO DAILY 02/13/17 [History] Magnesium Oxide [Magnesium] 800 mg PO DAILY 03/15/18 [History] Multivitamin [Multivitamins] 1 tab PO DAILY 03/15/18 [History] Ondansetron [Zofran] 8 mg PO Q8H PRN 03/15/18 [History] Prochlorperazine [Compazine] 10 mg PO Q6H PRN 03/15/18 [History] Vancomycin 125 mg PO Q6H 03/15/18 [History] hydrOXYzine HCl [hydrOXYzine] 50 mg PO TID PRN 03/15/18 [History] predniSONE [Prednisone] 40 mg PO DAILY 03/15/18 [History] Levofloxacin [Levaquin] 750 mg PO Q48H #3 tablet 03/16/18 [Rx] Past Medical History - Past Health History Medical/Surgical History: Denies Medical/Surgical History HEENT History: Reports: Allergic Rhinitis, Other (See Below) Other HEENT History: wears glasses Cardiovascular History: Reports: High Cholesterol, Hypertension, [place] Respiratory History: Reports: Other (See Below) Other Respiratory History: small cell lung cancer Gastrointestinal History: Reports: Other (See Below) Other Gastrointestinal History: reports an infection of some type in January 2018 Genitourinary History: Reports: None RUBBER MIXER History: Reports: None Musculoskeletal History: Reports: Arthritis Neurological History: Reports: None, Other (See Below) Other Neuro History: brain cancer Psychiatric History: Reports: None Endocrine/Metabolic History: Reports: Hypothyroidism Hematologic History: Reports: Anemia, Blood Transfusion(s) Oncologic (Cancer) History: Reports: Brain, Lung Dermatologic History: Reports: None - Infectious Disease History Infectious Disease History: Reports: Chicken Pox, Measles, Mumps - Past Surgical History Head Surgeries/Procedures: Reports: None HEENT Surgical History: Reports: Tonsillectomy Cardiovascular Surgical History: Reports: Coronary Artery Stent GI Surgical History: Reports: None Female Surgical History: Reports: None Endocrine Surgical History: Reports: Thyroidectomy Social & Family History - Family History Family Medical History: Noncontributory - Tobacco Use Smoking Status *Q: Never Smoker Used Tobacco, but Quit: Yes Month/Year Tobacco Last Used: 12/2016 Second Hand Smoke Exposure: No - Caffeine Use Caffeine Use: Reports: None - Recreational Drug Use Recreational Drug Use: No H&P Review of Systems - Review of Systems: Review Of Systems: ROS reveals no pertinent complaints other than HPI. Exam - Exam Exam: See Below - Vital Signs Vital Signs: Last Vital Signs Temp 36.4 C 03/15/18 12:00 Pulse 90 03/15/18 12:00 Resp 20 03/15/18 12:00 BP 124/61 03/15/18 12:00 Pulse Ox 93 L 03/15/18 12:00 Weight: 50.394 kg - Exam General: Alert, Oriented HEENT: Mucosa Moist & [place] Neck: Supple, Trachea Midline Lungs: Clear to Auscultation, Normal Respiratory Effort Cardiovascular: Regular Rate, Regular Rhythm GI/Abdominal Exam: Normal Bowel Sounds, Soft, Non-Tender Extremities: Normal Inspection, Normal Range of Motion, Non-Tender - Patient Data Lab Results Last 24 hrs: Laboratory Results - last 24 hr 03/15/18 03/15/18 03/15/18 Range/Units 09:15 09:15 10:52 WBC 8.78 (4.0-11.0) K/uL RBC 2.81 L (4.30-5.90) M/uL Hgb 8.2 L (12.0-16.0) g/dL Hct 25.2 L (36.0-46.0) % MCV 89.7 (80.0-98.0) fL MCH 29.2 (27.0-32.0) pg MCHC 32.5 (31.0-37.0) g/dL RDW Std Deviation 71.1 H (28.0-62.0) fl RDW Coeff of Alonso 24 H (11.0-15.0) % Plt Count 170 (150-400) K/uL MPV 9.10 (7.40-12.00) fL Add Manual Diff YES Neutrophils % (Manual) 77 (48.0-80.0) % Band Neutrophils % 10 % Lymphocytes % (Manual) 11 L (16.0-40.0) % Monocytes % (Manual) 2 (0.0-15.0) % Nucleated RBC % 0.6 /100WBC Absolute Seg Neuts 6.8 H (1.4-5.7) Band Neutrophils # 0.9 Lymphocytes # (Manual) 1.0 (0.6-2.4) Monocytes # (Manual) 0.2 (0.0-0.8) Nucleated RBCs 2 % Nucleated RBCs # 0 K/uL Polychromasia 1+ SLIGHT Anisocytosis 1+ SLIGHT Lactate 1.4 (0.20-2.00) mmol/L Sodium 134 L (136-145) mmol/L Potassium 3.4 L (3.5-5.1) mmol/L Chloride 93 L (98-107) mmol/L Carbon Dioxide 18.9 L (21.0-32.0) mmol/L BUN 49 H (7.0-18.0) mg/dL Creatinine 2.3 H (0.6-1.0) mg/dL Est Cr Clr Drug Dosing 20.06 mL/min Estimated GFR (MDRD) 21.5 ml/min Glucose 124 H (74-106) mg/dL Calcium 9.8 (8.5-10.1) mg/dL Total Bilirubin 0.5 (0.2-1.0) mg/dL AST 40 H (15-37) IU/L ALT 12 L (14-63) IU/L Alkaline Phosphatase 67 (46-116) U/L Troponin I < 0.050 (0.000-0.056) ng/mL Total Protein 7.9 (6.4-8.2) g/dL Albumin 2.5 L (3.4-5.0) g/dL Globulin 5.4 H (2.0-3.5) g/dL Albumin/Globulin Ratio 0.5 L (1.3-2.8) Result Diagrams: 03/16/18 06:15 03/16/18 06:55 Salty Results Last 24 hrs: Microbiology 03/15/18 10:52 Anaerobic Blood Culture - Final Blood - Venous - Lab Draw 03/15/18 09:15 Anaerobic Blood Culture - Final Blood - Venous Problem List Initiated/Reviewed/Updated: Yes Orders Last 24hrs: Active Orders 24 hr Category Date Time Status Admission Status [Patient Status] [ADT] Stat ADT 03/15/18 10:11 Active EKG 12 Lead [EKG Documentation Completion] [RC] STAT Care 03/15/18 08:44 Active Oxygen Therapy [RC] PRN Care 03/15/18 13:29 Ordered RT Aerosol Therapy [RC] ASDIRECTED Care 03/15/18 09:53 Active RT Aerosol Therapy [RC] ASDIRECTED Care 03/15/18 13:30 Ordered VTE/DVT Education [RC] PER UNIT ROUTINE Care 03/15/18 13:29 Ordered Vital Signs [RC] Q4H Care 03/15/18 13:29 Ordered Regular Diet [DIET] Diet 03/15/18 Lunch Active BASIC METABOLIC PANEL,BMP [CHEM] AM Lab 03/16/18 05:11 Ordered BASIC METABOLIC PANEL,BMP [CHEM] AM Lab 03/17/18 05:11 Ordered CBC WITH AUTO DIFF [HEME] AM Lab 03/16/18 05:11 Ordered CBC WITH AUTO DIFF [HEME] AM Lab 03/17/18 05:11 Ordered CULTURE BLOOD [BC] Stat Lab 03/15/18 09:15 Results CULTURE BLOOD [BC] Stat Lab 03/15/18 10:52 Results CULTURE SPUTUM + SMEAR [RM] Stat Lab 03/15/18 13:27 Ordered URINALYSIS W/MICROSCOPIC [UA W/MICROSCOPIC] [URIN] Stat Lab 03/15/18 08:45 Ordered Acetaminophen [Tylenol] Med 03/15/18 13:27 Ordered 650 mg PO Q4H PRN Albuterol/Ipratropium [DuoNeb 3.0-0.5 MG/3 ML] Med 03/15/18 13:27 Ordered 3 ml NEB Q4HRRT PRN Aspirin [Halfprin] Med 03/16/18 09:00 Ordered 81 mg PO DAILY Enoxaparin [Lovenox] Med 03/15/18 13:30 Ordered 40 mg SUBCUT Q24H Levofloxacin/Dextrose 5%-Water [Levaquin in D5W 750 MG/ Med 03/15/18 13:30 Ordered 150 ML] 750 mg Premix Bag 1 bag IV Q24H Levothyroxine Med 03/16/18 09:00 Ordered 75 mcg PO DAILY Omeprazole Magnesium [Prilosec Otc] Med 03/16/18 09:00 Ordered 1 tab PO DAILY Ondansetron [Zofran ODT] Med 03/15/18 13:27 Ordered 4 mg PO Q4H PRN Simvastatin [Zocor] Med 03/15/18 21:00 Ordered 20 mg PO BEDTIME Sodium Chloride 0.9% [Normal Saline] 1,000 ml Med 03/15/18 10:15 Active IV STAT Blood Culture x2 Reflex Set [OM.PC] Stat Oth 03/15/18 10:13 Ordered Resuscitation Status Routine Resus Stat 03/15/18 13:27 Ordered Medication Orders Aspirin (Halfprin) 81 mg PO DAILY FABBY Sodium Chloride (Normal Saline) 1,000 mls @ 125 mls/hr IV STAT FABBY Last Admin: 03/15/18 10:36 Dose: 125 mls/hr Levofloxacin/Dextrose 750 mg/ (Premix) 150 mls @ 100 mls/hr IV Q24H FABBY Levothyroxine Sodium (Levothyroxine) 75 mcg PO DAILY FABBY Non-Formulary Medication (Omeprazole Magnesium [Prilosec Otc]) 1 tab PO DAILY FABBY Simvastatin (Zocor) 20 mg PO BEDTIME [facility] Assessment/Plan Comment:: 62 yo female with pmh of lung cancer presenting with hypoxia and chest congestion. PAtient was admitted for treatment of pneumonia. She was monitored overnight and this morning patient is feeling better and is requesting discharge. She was discharged on Levaquin 750mg q48H #3 tabs and is to follow up in the oncology clinic.
[2018-03-15] MEDS: Enoxaparin 40 MG/0.4 ML Syringe SUBCUT SCH (14:32)
[2018-03-15] MEDS: Acetaminophen/oxyCODONE 325-5 MG Tab PO PRN (20:02)
[2018-03-15] MEDS ORDERED: Simvastatin 20 MG Tab PO SCH (21:00)
[2018-03-16] MEDS: Acetaminophen/oxyCODONE 325-5 MG Tab PO PRN ×4 (00:43→14:10)
[2018-03-16] MEDS: Sodium Chloride 0.9% 1,000 ML IV SCH ×2 (04:23→12:48)
[2018-03-16] MEDS ORDERED: Omeprazole 20 MG Cap.CR PO SCH (07:30)
[2018-03-16] MEDS ORDERED: Levothyroxine 75 MCG Tab PO SCH (07:30)
[2018-03-16] MEDS ORDERED: Aspirin 81 MG Tab.EC PO SCH (09:00)
[2018-03-16] MEDS: Enoxaparin 40 MG/0.4 ML Syringe SUBCUT SCH (14:10)
[2018-03-16] MEDS ORDERED: Heparin Sodium 100 Units/ML 3 ML Syringe FLUSH ONE (17:29)
[2018-03-16 17:59] VITALS: BP 138/76
== END 2018-03-16 18:00 | disposition home or self-care (01) ==
LOC: MW.ED 08:42 → MW.MS 10:46
PROVIDERS: ADMIT Internal Medicine; ATTEND Internal Medicine
DX: J18.9 Pneumonia, unspecified organism (principal); R09.02 Hypoxemia; I10 Essential (primary) hypertension; C34.90 Malignant neoplasm of unspecified part of unspecified bronchus or lung; C79.31 Secondary malignant neoplasm of brain; E89.0 Postprocedural hypothyroidism; E78.00 Pure hypercholesterolemia, unspecified; I25.2 Old myocardial infarction; Z91.040 Latex allergy status; Z91.048 Other nonmedicinal substance allergy status; Z88.5 Allergy status to narcotic agent; Z88.2 Allergy status to sulfonamides; Z79.82 Long term (current) use of aspirin; Z79.899 Other long term (current) drug therapy
CPT/HCPCS: 36415; 36430; 71046; 80048; 80053; 81001; 83605; 84484; 85025; 86850; 86900; 86901; 86920; 86921; 86922; 87040; 87070; 87205; 94640; 96365; 96372; 96375; 99285; A9270; G0378; J0696; J1642; J1650; J1956; J2930; J7040; P9016; 99283; J7620-GY